=== PATIENT | male | born 1995 | race Caucasian/White ===

== ENCOUNTER 2023-07-02 00:24 | Emergency (ER) | payer OTHER, SELFPAY ==
[2023-07-02 00:31] VITALS: BP 138/90; PULSE 110; O2SAT 100
--- NOTE | 2023-07-02 00:39 | ECG_ITS ---
Test Reason : ANXIETY Blood Pressure : / mmHG Vent. Rate : 089 BPM Atrial Rate : 089 BPM P-R Int : 158 ms QRS Dur : 098 ms QT Int : 394 ms P-R-T Axes : 002 049 051 degrees QTc Int : 479 ms Normal sinus rhythm Normal ECG When compared with ECG of 26-MAR-2015 07:35, No significant change was found Referred By: Generic ED Physician Electronically Signed By:SINA LEW MD
[2023-07-02 00:48] VITALS: BP 125/78; PULSE 119; RESP 20; TEMP 36.8; O2SAT 99; BMI 35.7
--- NOTE | 2023-07-02 00:53 | MHC.EDTECH ---
Patient arrived by ambulance,vitals taken and EKG done per order. Patient ambulated to bathroom with security for supervisor records change to crisis attire.
[2023-07-02 01:02] LABS: Amphetamine Screen Urine Not Detected (Not Detect); Barbiturates, Urine Not Detected (Not Detect); Benzodiazepines Screen Urine Not Detected (Not Detect); Cannabinoid Screen Urine POSITIVE (Not Detect); Cocaine Screen Urine Not Detected (Not Detect); Fentanyl, urine Not Detected (Not Detect); Opiate Screen Urine Not Detected (Not Detect); Phencyclidine Screen Urine Not Detected (Not Detect)
[2023-07-02 01:08] LABS: Alanine Aminotransferase 49 U/L (0-40); Albumin Level 4.5 g/dL (3.5-5.0); Alkaline Phosphatase 76 U/L (39-117); Anion Gap 16 (12-20); Aspartate Amino Transferase 31 U/L (5-37); Blood Urea Nitrogen 12 mg/dL (9-16); Calcium 9.4 mg/dL (8.4-10.2); Carbon Dioxide 22 mmol/L (22-29); Chloride 104 mmol/L (96-108); Creatinine Clr Calc Pharmacy 121.5; Estimated Glomerular Filt Rate > 60; Ethanol < 10 mg/dL; Glucose Random 143 mg/dL (60-115); Potassium 3.4 mmol/L (3.3-5.1); Sodium 139 mmol/L (135-145); Total Protein 7.7 g/dL (6.5-8.0)
[2023-07-02 01:15] LABS: Glucose, Whole Blood 121 mg/dL (60-115)
--- NOTE | 2023-07-02 01:15 | MHC.EDTECH ---
Belonging list completed and locked in locker 5, mom took home cellphone. Labs and urine sample obtained and sent to lab.
--- NOTE | 2023-07-02 01:18 | ED_ITS ---
HPI - Psych General Chief Complaint: Psychiatric Symptoms Stated Complaint: crisis Time Seen by Provider: 07/02/23 00:47 Source: patient Mode of arrival: EMS Limitations: no limitations History of Present Illness HPI Narrative: Patient comes to the emergency room via ambulance. Patient has been feeling delusional and paranoid. Patient states that he has been in the [employer] after serving for years, he has not been acting of feeling like himself. Patient denies SI or HI. Patient states that he feels like he is going crazy. Patient states that he feels like he is going to , keeps telling the sitter to not allow him to . Patient admits to smoking marijuana, denies using drugs or alcohol. Related Data Home Medications Medication Instructions Recorded Confirmed No Known Home Meds 07/02/23 07/02/23 Allergies Allergy/AdvReac Type Severity Reaction Status Date / Time No Known Allergies Allergy Unverified 07/02/23 00:47 [No Known Allergies*] Review of Systems 2 Review of Systems: Constitutional : No Weight loss, No Fever, No Chills, No Night Sweats, No Fatigue, No Malaise ENT/Mouth : No Hearing loss, No Ear Pain, No Nasal Congestion, No Sinus Pain, No Hoarseness, No sore throat, No Rhinorrhea, No Swallowing Difficulty Eyes: No Eye Pain, No Swelling, No Redness, No Foreign Body, No Discharge, No Vision Changes Cardiovascular : No Chest Pain, No SOB, No Dyspnea on Exertion, No Orthopnea, No Edema, No Palpitations Respiratory : No Cough, No Sputum, No Wheezing, No Smoke Exposure, No Dyspnea Gastrointestinal : No Nausea, No Vomiting, No Diarrhea, No Constipation, No abdominal Pain, No Hematochezia, No Melena Genitourinary : no irregular bleeding, No Dysuria, No Urinary Frequency, No Hematuria, No Urinary Incontinence, No Urgency, No Flank Pain, No Urinary Flow Changes, No Hesitancy Musculoskeletal : No joint pain, No Myalgias, No Joint Swelling Skin : No Skin Lesions, No rash Neuro : No Weakness, No Numbness, No Paresthesias, No Loss of Consciousness, No Dizziness, No Headache Psych : Feeling anxious, paranoid, no SI or HI Heme/Lymph: No Bruising, No Bleeding,No Lymphadenopathy Endocrine : No Polyuria, No Polydipsia, No Temperature Intolerance [facility] Social History Social History Advance Directives: No Advance Directives Information Provided: No Physical Exam 2 Vital Signs: Vital Signs: Last Vital Signs Temp 98.2 F 07/02/23 00:48 Pulse 119 H 07/02/23 00:48 Resp 20 07/02/23 00:48 BP 125/78 07/02/23 00:48 Pulse Ox 99 07/02/23 00:48 O2 Del Method Room Air 07/02/23 00:48 BMI result Body Mass Index 35.7 Const: Other: Appearance: Alert. Oriented X3. No acute distress. Eyes: Pupils equal, round and reactive to light. ENT: Pharynx normal. Neck: Normal inspection. Neck supple. No lymph nodes noted. No crepitus CVS: Normal heart rate and rhythm. Pulses normal. Normal S1 and S2 Respiratory: No respiratory distress. Breath sounds normal. No Wheezing. No rales Abdomen: Soft and nontender. No rigidity. No distention. Skin: Skin warm and dry. Normal skin color. Normal skin turgor. Extremities: No lower extremity edema. No Lacerations. No Rash Neuro: Oriented X 3. No motor deficit. No sensory deficit. Moving all extremities. No slurred speech. CN 2 through 12 grossly intact Psych: calm, cooperative, bit anxious Course Course Course Narrative: -care team consult pending -physician observation started at 01:21 Medical Decision Making Differential Diagnosis Differential Diagnoses: The differential diagnosis associated with the presentation includes (Anxiety, depression, PTSD, paranoia) Admission/Observation Consideration of admission/observation: Escalation of care including admission/observation considered (Patient is not on a Section 12 but will remain under observation and to Behavioral Health determines patient's disposition) Lab Data 07/02/23 01:18 EST 07/02/23 01:18 EST Labs: Lab Results 07/02/23 07/02/23 Range/Units 00:50 01:18 EST WBC 11.5 H (4.8-10.8) X10*3/uL RBC 4.99 (4.60-5.80) X10*6/uL Hgb 14.4 (14.0-18.0) g/dl Hct 42.7 (42.0-52.0) % MCV 85.6 (80.0-98.0) fL MCH 28.9 (27.0-33.0) pg MCHC 33.7 (31.0-36.0) g/dl RDW 12.5 (11.0-16.0) % Plt Count 335 (160-400) X10*3/uL MPV 8.9 L (9.4-12.4) fL Immature Gran % (Auto) 0.7 H (0.0-0.4) % Neut % (Auto) 62.8 (45-73) % Lymph % (Auto) 24.8 (20-40) % Mora % (Auto) 10.7 (2-11) % Eos % (Auto) 0.6 (0-4) % Baso % (Auto) 0.4 (0-2) % Lymph # (Auto) 2.8 (1.2-4.9) X10*3/uL Mora # (Auto) 1.2 (0.1-1.2) X10*3/uL Eos # (Auto) 0.1 (0.0-0.4) X10*3/uL Baso # (Auto) 0.1 (0.0-0.2) X10*3/uL Abs Immat Gran (auto) 0.08 H (0.00-0.03) X10*3/uL Absolute Neuts (auto) 7.2 (2.0-8.3) x10*3/uL Absolute Nucleated RBC 0.000 (0.0-0.012) X10*3/uL Nucleated RBC % (auto) 0.0 (0.0-0.2) /100WBC Sodium 139 (135-145) mmol/L Potassium 3.4 (3.3-5.1) mmol/L Chloride 104 (96-108) mmol/L Carbon Dioxide 22 (22-29) mmol/L Anion Gap 16 (12-20) BUN 12 (9-16) mg/dL Creatinine 1.08 (0.5-1.4) mg/dL Estim Creat Clear Calc 121.5 Estimated GFR > 60 POC Glucose 121 H (60-115) mg/dL Random Glucose 143 H (60-115) mg/dL Calcium 9.4 (8.4-10.2) mg/dL Total Bilirubin 1.0 (0.0-1.0) mg/dL AST 31 (5-37) U/L ALT 49 H (0-40) U/L Alkaline Phosphatase 76 (39-117) U/L Total Protein 7.7 (6.5-8.0) g/dL Albumin 4.5 (3.5-5.0) g/dL Urine Opiates Screen Not Detected (Not Detect) Urine Fentanyl Screen Not Detected (Not Detect) Ur Barbiturates Screen Not Detected (Not Detect) Ur Phencyclidine Scrn Not Detected (Not Detect) Ur Amphetamines Screen Not Detected (Not Detect) U Benzodiazepines Scrn Not Detected (Not Detect) Urine Cocaine Screen Not Detected (Not Detect) U Marijuana (THC) Screen POSITIVE H (Not Detect) Ethyl Alcohol < 10 mg/dL Critical Care Time Critical Care Time Critical Care Time: Yes Total Critical Care Time: 45 Attestation: I have personally provided critical care time. Time includes review of lab data, radiology results, discussion with consultants, and monitoring for potential decompensation. Intervention performed as documented. Discharge Plan Discharge Clinical Impression: Paranoid Patient Disposition: Still a Patient Prescriptions: No Action No Known Home Meds
[2023-07-02 01:21] LABS: MANUAL DIFF FLAG NO
[2023-07-02 01:24] LABS: Basophils Absolute Auto 0.1 X10*3/uL (0.0-0.2); Basophils Percent Auto 0.4 % (0-2); Eosinophils Absolute Auto 0.1 X10*3/uL (0.0-0.4); Eosinophils Percent Auto 0.6 % (0-4); Hematocrit 42.7 % (42.0-52.0); Hemoglobin 14.4 g/dl (14.0-18.0); Imm Gran Abs Auto 0.08 X10*3/uL (0.00-0.03); Imm Gran Pct Auto 0.7 % (0.0-0.4); Lymphocytes Absolute Auto 2.8 X10*3/uL (1.2-4.9); Lymphocytes Percent Auto 24.8 % (20-40); Mean Corpuscular HGB Conc 33.7 g/dl (31.0-36.0); Mean Corpuscular Hemoglobin 28.9 pg (27.0-33.0); Mean Corpuscular Volume 85.6 fL (80.0-98.0); Mean Platelet Volume 8.9 fL (9.4-12.4); Monocytes Absolute Auto 1.2 X10*3/uL (0.1-1.2); Monocytes Percent Auto 10.7 % (2-11); Neutrophils Absolute Auto 7.2 x10*3/uL (2.0-8.3); Neutrophils Percent Auto 62.8 % (45-73); Platelet Count 335 X10*3/uL (160-400); Red Blood Count 4.99 X10*6/uL (4.60-5.80); Red Cell Distribution Width 12.5 % (11.0-16.0); White Blood Count 11.5 X10*3/uL (4.8-10.8)
--- NOTE | 2023-07-02 06:29 | PC.NURSE ---
Patient slept in all an hour and half, patient refused medication for sleep, thought content paranoid with racing thought, care consult ordered/pending evaluation, med rec completed/patient is currently not on any medication, VSS, labs completed/resulted, will continue to monitor.
[2023-07-02 06:39] VITALS: PULSE 86
--- NOTE | 2023-07-02 07:09 | PC.NURSE ---
patient appears to remain asleep respirations are even and unlabored patient now seated in a chair directly up against the wall proximal to entrance of room, patient appears in no distress
--- NOTE | 2023-07-02 07:14 | PC.NURSE ---
client comes to rn station approaches staff about process of being seen this morning, breathing deeply, seems tearful and emotionally fragile/vulerable. t/w invited client to sit in eye view of rn station if it would help client.
--- NOTE | 2023-07-02 08:49 | PC.NURSE ---
patient asked t/w to express to clinician for the first time in my life i feel like i have purpose
--- NOTE | 2023-07-02 08:56 | PC.NURSE ---
client pacing, freftul, tangential thought process, seeming almost panicked, declines all offered medications
--- NOTE | 2023-07-02 09:12 | PC.NURSE ---
pursued order for benadryl for sleep patient declined.
[2023-07-02] MEDS: diphenhydrAMINE HCL 25 MG CAPSULE 50 MG PO (09:46)
--- NOTE | 2023-07-02 11:57 | MHC.CARE ---
[facility].
[2023-07-02] MEDS: OLANZapine 5 MG TABLET PO ×2 (12:04→20:50)
--- NOTE | 2023-07-02 14:37 | MHC.CARE ---
[facility], need [facility] for review for potential admission.
[2023-07-02 16:20] LABS: COVID-19 Test Positive (Negative); IDNOW Serial# 6674DD1D
--- NOTE | 2023-07-02 16:42 | PC.NURSE ---
informed mother about covid status, informed provider also.
--- NOTE | 2023-07-02 16:43 | PC.NURSE ---
asked clients mother to inform father and sister of covid positive status
--- NOTE | 2023-07-02 18:27 | PC.NURSE ---
patients father expressed interest [facility], but t/w expressed how it may take time for place,ent there now considering
[2023-07-02 20:08] VITALS: BP 135/98; PULSE 98; RESP 20; TEMP 36.6; O2SAT 98
[2023-07-03 05:55] VITALS: BP 134/90; PULSE 90; RESP 16; TEMP 36.1; O2SAT 97
[2023-07-03] MEDS: OLANZapine 5 MG TABLET PO ×2 (06:39→20:20)
--- NOTE | 2023-07-03 07:16 | PC.NURSE ---
PT medicated as per MAR due to racing thoughts , pacing and paranoia. After being medicated PT appeared to be sleeping for most of the shit. PT woke up at 530am request caffeine and stating that he slept for 15 hours. PT endorsing racing thoughts again, request one time dose of zyprexa from provider. PT noted it appered to help him significantly. PT provided meal. Resting in room quiel Plan of care ongoing.
[2023-07-03] MEDS: LORazepam 1 MG TABLET PO ×2 (07:41→20:20)
--- NOTE | 2023-07-03 07:45 | PC.NURSE ---
Francisco was OOB and verbalized feeling anxious and bored without his cellphone. He was observed pacing and rocking in his room. 1mg Lorazepam PO given pending effect.
--- NOTE | 2023-07-03 09:29 | MHC.CARE ---
RAD Team reached out to [facility] to inquire if they could review someone who is covid+. T/w spoke to Lexii who informed me that they cannot take someone who is covid+ and from their knowledge neither will [facility] or [facility]. She stated that she would give me a call back if that info is incorrect and gave me the number to an emergency line [phone] that we can call to notify of his status in the ED if placement cannot be found. Lexii also informed me that if there are any [facility]id[facility] available [facility] that they would be able to pay for his admission there.
--- NOTE | 2023-07-03 11:44 | MHC.CARE ---
0900 - CARE Team attempts to meet with pt to conduct an MSU. Pt is asleep and would not awaken. 1130 - CARE Team attempts to meet with pt to conduct an MSU. Pt is asleep and would not awaken.
--- NOTE | 2023-07-03 12:17 | MHC.CARE ---
Section 12 placed in pt's chart. Provider and RN made aware.
[2023-07-03 15:24] LABS: COVID-19 Test Negative (Negative); IDNOW Serial# BCCEAD1C
--- NOTE | 2023-07-03 17:12 | MHC.CARE ---
CARE Team international trade analyst called [facility] to confirm receiving of successful fax of patient's updated information and negative COVID status sent at 16:08. loss prevention coordinator Leander reports not having the information.
--- NOTE | 2023-07-03 17:50 | PC.NURSE ---
Covid PCR completed for transfer to [place]. Pending results.
[2023-07-03 18:28] LABS: Influenza A PCR NEGATIVE (Negative); Influenza B PCR NEGATIVE (Negative); Resp Syncy Virus RNA Qual PCR NEGATIVE (Negative); SARS COV2 PCR INHOUSE NEGATIVE (Negative)
--- NOTE | 2023-07-03 20:24 | PC.NURSE ---
I assumed care of the pt at 1900. Pt resting quietly in bed with TV on. Pt is A&Ox4, GCS 15 with warm, dry skin. Calm and cooperative. Pt medicated per OCT. [facility] at [facility] time.
--- NOTE | 2023-07-03 20:32 | PC.NURSE ---
Spoke with Marty from [place] who stated they have received the COVID results and are accepting the pt. Transportation will be here in approx 30 min.
[2023-07-03 20:38] VITALS: BP 128/84; PULSE 101; RESP 17; O2SAT 98
== END 2023-07-03 20:52 ==
PROVIDERS: Emergency Medicine; Student in an Organized Health Care Education/Training Program; Emergency Provider Emergency Medicine
DX: F22 Delusional disorders (principal); F23 Brief psychotic disorder; Z20.822 Contact with and (suspected) exposure to COVID-19; Z20.828 Contact with and (suspected) exposure to other viral communicable diseases; Z11.52 Encounter for screening for COVID-19; F12.90 Cannabis use, unspecified, uncomplicated
CPT/HCPCS: 0241U; 36415; 80053; 80307; 82947; 85025; 87635; 93005; 99284; 99285; S9485

== ENCOUNTER 2024-07-09 12:26 | Emergency (ER) | payer MEDICAID, SELFPAY ==
--- NOTE | ~2024-07-09 | US_ITS ---
EXAMINATION: US SCROTUM CLINICAL INFORMATION: Severe testicular pain. COMPARISON: None available. TECHNIQUE: A sonogram of the scrotum was performed assessing mcgregor-scale appearance and color Doppler flow. Spectral Doppler analysis of the arterial and venous flow were performed in the testes bilaterally. FINDINGS: RIGHT: Right testicle measures 4.7 x 3.2 x 3.3 cm, volume 25.5 mL. No focal testicular parenchymal lesions are visualized. Spectral Doppler analysis of the arterial and venous flow is normal in the right testis. Right epididymal head is normal in size. No right hydrocele or varicocele is seen. Right epididymal Doppler flow is normal. LEFT: Left testicle measures 4.8 x 3 x 3.3 cm, volume 25.4 mL. No focal testicular parenchymal lesions are visualized. Spectral Doppler analysis of the arterial and venous flow is normal in the left testis. Left epididymal head is normal in size. No left hydrocele or varicocele is seen. Left epididymal Doppler flow is normal. US/US scrotum IMPRESSION: No evidence of testicular torsion. Normal-appearing testicles bilaterally. Electronically signed by: Marques Colindres MD 07/09/2024 01:35 PM [facility] [place]
--- NOTE | ~2024-07-09 | US_ITS ---
EXAMINATION: US SCROTUM CLINICAL INFORMATION: Severe testicular pain. COMPARISON: None available. TECHNIQUE: A sonogram of the scrotum was performed assessing mcgregor-scale appearance and color Doppler flow. Spectral Doppler analysis of the arterial and venous flow were performed in the testes bilaterally. FINDINGS: RIGHT: Right testicle measures 4.7 x 3.2 x 3.3 cm, volume 25.5 mL. No focal testicular parenchymal lesions are visualized. Spectral Doppler analysis of the arterial and venous flow is normal in the right testis. Right epididymal head is normal in size. No right hydrocele or varicocele is seen. Right epididymal Doppler flow is normal. LEFT: Left testicle measures 4.8 x 3 x 3.3 cm, volume 25.4 mL. No focal testicular parenchymal lesions are visualized. Spectral Doppler analysis of the arterial and venous flow is normal in the left testis. Left epididymal head is normal in size. No left hydrocele or varicocele is seen. Left epididymal Doppler flow is normal. US/US scrotum doppler IMPRESSION: No evidence of testicular torsion. Normal-appearing testicles bilaterally. Electronically signed by: Marques Colindres MD 07/09/2024 01:35 PM [facility]
[2024-07-09 12:35] VITALS: BP 116/98; PULSE 121; RESP 18; TEMP 36.8; O2SAT 98; BMI 37.2
--- NOTE | 2024-07-09 12:35 | ED_ITS ---
HPI - General Adult General Chief complaint: Urogenital-Male Stated complaint: twisted testicles Time Seen by Provider: 07/09/24 12:58 Source: patient and RN notes reviewed Mode of arrival: ambulatory Limitations: no limitations History of Present Illness ED Provider: Stephy Holt PA-C HPI narrative: This is a 29-year-old male who presents emergency department with complaints of left testicular pain. Patient states that while he was driving he suddenly had an acute onset of left testicular pain that radiated from his left lower quadrant into his left testicle. He denies any testicular swelling. Reporting 10/10 pain in triage. Upon my assessment, patient states that his pain has resolved however he is anxious that this pain will return. He denies any fevers, chills, nausea, vomiting, diarrhea. Denies history similar symptoms in the past. No other complaints or concerns at this time. MD complaint: Left testicular pain Onset (ago): hour(s) Radiation: non-radiation Severity: moderate Quality: aching Pain Consistency: constant Relieving factors: none Exacerbating factors: none Associated symptoms: denies other symptoms Treatments prior to arrival: none Related Data Home Medications ?Medication ?Instructions ?Recorded ?Confirmed No Known Home Meds 07/02/23 07/02/23 Allergies Allergy/AdvReac Type Severity Reaction Status Date / Time No Known Allergies Allergy Verified 07/09/24 12:38 [No Known Allergies*] Review of Systems Review of Systems: Yes all other systems are reviewed and are negative Constitutional: Constitutional: Reports as per [facility] Past Medical History Attestation statement: The following information was validated with the patient. Social History Social History Advance Directives: No Advance Directives Information Provided: No Do you have a plan to hurt others: No Plan Physical Exam ED Vital Signs: Vital Signs - 24 hr 07/09/24 12:35 07/09/24 14:58 07/09/24 16:15 Temperature 98.3 F 98.3 F 98.2 F Pulse Rate 121 H 97 75 Respiratory Rate 18 16 16 Blood Pressure 116/98 H 118/73 134/87 Pulse Oximetry 98 96 97 Oxygen Delivery Method Room Air Room Air Room Air 07/09/24 16:41 Temperature 98.2 F Pulse Rate 75 Respiratory Rate 16 Blood Pressure 134/87 Pulse Oximetry 97 Oxygen Delivery Method Room Air BMI result Body Mass Index 37.2 Const General: cooperative, comfortable and no acute distress Orientation/consciousness: patient oriented x3 Limitations: no limitations HENMT Head: Yes normal to inspection, Yes normocephalic and Yes atraumatic Ears: hearing grossly normal bilaterally General nose exam: Normal external nose present Face and sinus: Yes normal facial exam Mouth: Normal oral and palatal mucosa present, oropharynx normal and moist mucous membranes Throat: Yes posterior oropharynx normal Eyes General: appearance normal, both eyes and all related structures Eyelids: Yes eyelids normal Conjunctivae: conjunctivae normal Sclerae: sclerae normal Pupils: Equal, round and reactive pupils present EOM: EOMs intact bilaterally Neck Neck: Yes normal visual inspection, Yes full ROM and Yes no lymphadenopathy Lymphatic: no lymphadenopathy noted Chest Chest palpation & inspection: normal inspection of the chest Resp Effort & Inspection: normal respiratory effort and able to speak in complete sentences Auscultation: clear to auscultation bilaterally, no crackles, no rales, no rhonchi and no wheezes Cardio Rate: regular rate Rhythm: regular rhythm Heart sounds: S1 normal heart sound present and S2 normal heart sound present GI Inspection: Yes normal to inspection Other: examination was performed with Annie Boateng LPN present at all times. Male General Exam: Yes normal external exam and No ecchymosis Penis: normal penis Meatus: no meatla discharge Scrotum: scrotum normal, no ecchymosis, not edematous, testes descended bilaterally, no hydroceles, no inguinal hernias, no masses, no scrotal swelling and no ulcerations Testes: Testes normal, testicular lie normal and no testicular tenderness Skin General skin exam: no rashes or lesions noted Trauma: no lacerations or abrasions Wounds: no wounds Neuro General: patient oriented x3 and moves all extremities Cranial nerves: Yes Equal, round and reactive pupils present Extrem General: Yes normal to inspection Right upper extremity: normal to inspection Left upper extremity: normal to inspection Right lower extremity: normal to inspection Left lower extremity: normal to inspection Course Course Course Narrative: This is a rapid medical exam performed by Shama Card NP: Additional HPI, ROS, PE not included below will be deferred to primary provider. Patient is a 29-year-old male presenting with severe sudden onset left testicular pain which began 2 hours ago. Feels urge to urinate and have BM, states unable to do either, unable to sit, appears very uncomfortable. Plan: US with doppler, UA, CT NG Reevaluation(s) Reevaluation #1: Urine returns, revealing hematuria. He likely passed a stone which caused him to have the symptoms. I discussed workup with urologist, Dr. Hernández, who states that he will follow-up with patient tomorrow. Torsion is unlikely in his age. More likely a kidney stone. Given he is asymptomatic, urinating freely, no further workup indicated at this time. Patient given strict return precautions. He is comfortable with this plan patient stable for discharge. Medical Decision Making Medical Decision Making [facility] Narrative: This is a 29-year-old male who presents emergency department with complaints of acute onset left testicular pain which started this afternoon. On arrival, patient tachycardic at 121, blood pressure 116/98. Patient was visibly uncomfortable in triage however upon my assessment, patient states that his pain completely resolved. Ultrasound was immediately performed at bedside, revealing no evidence of torsion. Will obtain UA to rule out any infection. He is not sexually active therefore STIs unlikely. Differential Diagnosis Differential Diagnoses: The differential diagnosis associated with the presentation includes Epididymitis, testicular torsion, acute cystitis, STI, pyelonephritis, obstructive uropathy Lab Data [facility] Lab Attestation statement: I reviewed the patient's lab results. Labs: Lab Results 07/09/24 Range/Units 15:40 Urine Color Yellow Urine Appearance Clear Urine pH 8.5 (5.0-9.0) Ur Specific [place] 1.010 (1.005-1.025) Urine Protein Negative (Neg-Trace) mg/dL Urine Glucose (UA) Negative (Negative) mg/dL Urine Ketones Negative (Negative) mg/dL Urine Blood Moderate (2+) H (Negative) Urine Nitrite Negative (Negative) Ur Leukocyte Esterase Negative (Negative) Urine RBC >20 H (0-2) /HPF Urine WBC 0-5 (0-5) /HPF Ur Squamous Epith Cells 0-2 (0-2) /HPF Urine Bacteria None Seen (None Seen) Hyaline Casts 0-2 (0-2) /LPF Chlam trachomat DNA PCR NOT DETECTED (Not Detect.) N.gonorrhoeae DNA (PCR) NOT DETECTED (Not Detect.) Radiology Impression Discussion of test interpretation with radiology: I have reviewed the radiologist's reading. Radiologist Impression: US/US scrotum doppler IMPRESSION: No evidence of testicular torsion. Normal-appearing testicles bilaterally. Electronically signed by: Marques Colindres MD 07/09/2024 01:35 PM [facility] [place] Discharge Plan Discharge Clinical Impression: Pain in left testicle, Hematuria Patient Disposition: Home, Self-Care Instructions: Hematuria (ED), Testicle Pain (ED) Additional Instructions: You were seen in the emergency department due to left testicular pain. Your ultrasound was normal and did not reveal any evidence of testicular torsion. Your urine does show microscopic blood, this may be indicative of a kidney stone that you may have passed. It is unclear if you had testicular torsion that self resolved or if you had a kidney stone that you may have passed. Please stay very well hydrated. If your symptoms return, please immediately seek emergent care. The urology office will call you tomorrow to set up an appointment. If you do not hear from them, their number is below. Prescriptions: No Action No Known Home Meds Referrals: [facility] Services [Provider Group] Stand Alone Forms: Work/School Release Interventions: ED Discharge Assessment Last Done: 07/09/24 16:41 Discharge Date/Time: 07/09/24 16:41 Print Language: Korean
[2024-07-09 14:58] VITALS: BP 118/73; PULSE 97; RESP 16; TEMP 36.8; O2SAT 96
[2024-07-09 15:49] LABS: Appearance Urine Clear; Color Urine Yellow; Glucose Urine UA Negative (Negative); Leukocyte Esterase Urine Negative (Negative); Nitrite Urine Negative (Negative); PH 8.5 (5.0-9.0); UMIC TRIGGER UACC YES; Urine Blood Moderate (2+) (Negative); Urine Ketones Negative (Negative); Urine Protein Negative (Neg-Trace)
[2024-07-09 15:51] LABS: Bacteria Urine None Seen (None Seen); Hyaline Casts Urine 0-2 /LPF (0-2); RBC Urine >20 /HPF (0-2); Squamous Epithelial Cell Urine 0-2 /HPF (0-2); WBC Urine 0-5 /HPF (0-5)
[2024-07-09 16:15] VITALS: BP 134/87; PULSE 75; RESP 16; TEMP 36.8; O2SAT 97
[2024-07-09 16:41] VITALS: BP 134/87; PULSE 75; RESP 16; TEMP 36.8; O2SAT 97
[2024-07-09 17:39] LABS: CT PCR NOT DETECTED (Not Detect.); NG PCR NOT DETECTED (Not Detect.)
== END 2024-07-09 16:41 | disposition home or self-care (01) ==
PROVIDERS: Registered Nurse Emergency; Emergency Provider Emergency Medicine; PCP Internal Medicine
DX: N50.812 Left testicular pain (principal); R31.9 Hematuria, unspecified; R10.30 Lower abdominal pain, unspecified
CPT/HCPCS: 76870; 81001; 87491; 87591; 93975; 99283; 99284

== ENCOUNTER 2024-09-15 16:42 | Emergency (ER) | payer OTHER, SELFPAY ==
[2024-09-15 16:57] VITALS: BP 172/100; PULSE 134; O2SAT 98
[2024-09-15 16:59] VITALS: BP 125/85; PULSE 142; RESP 18; TEMP 37.3; O2SAT 99; BMI 25.8
--- NOTE | 2024-09-15 17:03 | ECG_ITS ---
Test Reason : crisis Blood Pressure : */* mmHG Vent. Rate : 106 BPM Atrial Rate : 106 BPM P-R Int : 152 ms QRS Dur : 96 ms QT Int : 326 ms P-R-T Axes : 60 16 29 degrees QTcB Int : 433 ms Sinus tachycardia Otherwise normal ECG When compared with ECG of 02-Jul-2023 00:43, No significant change was found Referred By: Carmencita Plasencia Electronically Signed By: MANUELA SAMUELS MD
[2024-09-15] MEDS: LORazepam 1 MG TABLET 2 MG PO ×2 (17:13→19:37)
--- NOTE | 2024-09-15 17:26 | ED_ITS ---
HPI - Psych General Chief Complaint: Psychiatric Symptoms Stated Complaint: with ptsd, si Time Seen by Provider: 09/15/24 16:53 Source: patient Mode of arrival: ambulatory Limitations: no limitations History of Present Illness ED Provider: Carmencita Plasencia APRN HPI Narrative: 29 yo male with history of PTSD presents to the ER with reports of patient being combative at home, destroying the house , drank alcohol today, smoked marijuana. EMS reports patient took misc medications. I asked patient and he tells me he took one pill for anxiety but denies any other medications. looks like he hasnt picked up medications since November 2023. He tells me he has been off all medications. [facility] He tells me he has been drinking alcohol and smoking marijuana daily. States I feel manic, I feel euphoric, I think I'm Anton Mendoza or Josh Garner. he denies SI or HI. Denies hallucinations. Denies additional substance use Related Data Home Medications ?Medication ?Instructions ?Recorded ?Confirmed fluoxetine 20 mg capsule 20 mg PO QAM 09/15/24 09/15/24 Allergies Allergy/AdvReac Type Severity Reaction Status Date / Time No Known Allergies Allergy Verified 09/15/24 17:01 [No Known Allergies*] Review of Systems 2 Review of Systems: Yes all other systems are reviewed and are negative Constitutional: Constitutional: Reports no additional constitutional complaints, Denies body ache(s), Denies chills, Denies fever(s), Denies headache(s) and Denies weakness Eyes: Eyes: Reports no additional eye complaints and Denies change in vision ENT: Reports system reviewed and no additional complaints, except as documented, Denies dizziness, Denies headache(s), Denies nasal congestion, Denies nasal discharge and Denies neck pain Cardiovascular: Cardiovascular: Reports no additional cardiovascular complaints, Denies chest pain, Denies leg edema and Denies dyspnea Respiratory: Respiratory: Reports no additional respiratory complaints, Denies cough and Denies dyspnea Gastrointestinal: Gastrointestinal: Reports no additional gastrointestinal complaints, Denies abdominal pain, Denies diarrhea, Denies nausea and Denies vomiting Genitourinary: Genitourinary: Denies urinary incontinence Musculoskeletal: Musculoskeletal: Reports no additional musculoskeletal complaints, Denies back pain, Denies arthralgias, Denies joint swelling, Denies neck pain, Denies numbness and Denies tingling Integumentary/Breasts: Skin/Breast: Reports system reviewed and no additional complaints, except as docu and Denies rash Neurologic: Reports system reviewed and no additional complaints, except as documented, Denies Abnormal speech present, Denies dizziness, Denies headache(s), Denies numbness, Denies tingling and Denies weakness Psychiatric: Psychiatric: Denies homicidal ideation and Denies suicidal ideation [facility] Past Medical History Attestation statement: The following information was validated with the patient. Source: old records reviewed and nursing notes reviewed Social History Social History Advance Directives: No Advance Directives Information Provided: No Physical Exam 2 Vital Signs: Vital Signs: Last Vital Signs Temp 98.1 F 09/15/24 19:18 Pulse 112 H 09/15/24 19:18 Resp 18 09/15/24 19:18 BP 128/94 H 09/15/24 19:18 Pulse Ox 95 09/15/24 19:18 O2 Del Method Room Air 09/15/24 19:18 BMI result Body Mass Index 25.8 Const: General: cooperative, healthy appearing, comfortable and no acute distress Orientation/consciousness: patient oriented x3 Limitations: no limitations HEENT: Head: Yes normal to inspection Ears: hearing grossly normal bilaterally General nose exam: Normal external nose present Face and sinus: Yes normal facial exam Mouth: Normal oral and palatal mucosa present Throat: Yes posterior oropharynx normal Eyes: General: appearance normal, both eyes and all related structures P upils: Equal, round and reactive pupils present Neck: Neck: Yes normal visual inspection Chest: Chest palpation & inspection: normal inspection of the chest Resp: Effort & Inspection: normal respiratory effort Auscultation: clear to auscultation bilaterally Cardio: Rate: regular rate Rhythm: regular rhythm Peripheral pulses: P eripheral pulses 2+ throughout GI: Inspection: Yes normal to inspection Palpation (GI): Soft to palpation and nontender Auscultation: normal bowel sounds Back/Spine/Pelvis: Thoracic/Lumbar Spine: thoracic and lumbar spine normal to inspection Skin: General skin exam: no rashes or lesions noted Neuro: General: patient oriented x3, no focal motor deficits and normal sensation to monofilament Cranial nerves: Yes CN's II-XII intact bilaterally and Yes Equal, round and reactive pupils present Cognition (Neuro): normal cognition Speech: No Abnormal speech present Gait exam (Neuro): Normal gait present Motor exam (neuro): 5/5 motor strength present throughout Extrem: General: Yes normal to inspection Course Course Course Narrative: Nursing spoke to father. Patient took NO prescription medications prior to arrival. Reevaluation(s) Reevaluation #1: Patient placed in physician observation pending care team evaluation. Medications Administered Discontinued Medications Generic Name Dose Route Start Last Admin Trade Name Chelsey PRN Reason Stop Dose Admin Diphenhydramine HCl 50 mg 09/15/24 19:49 09/15/24 20:16 Diphenhydramine Hcl 25 Mg Capsule PO 09/15/24 19:50 50 mg ONCE ONE Administration Lorazepam 2 mg 09/15/24 17:06 09/15/24 17:13 Lorazepam 1 Mg Tablet PO 09/15/24 17:07 2 mg ONCE ONE Administration Lorazepam 2 mg 09/15/24 19:33 09/15/24 19:37 Lorazepam 1 Mg Tablet PO 09/15/24 19:34 2 mg ONCE ONE Administration Olanzapine 10 mg 09/15/24 17:06 09/15/24 17:16 Olanzapine 10 Mg Tablet PO 09/15/24 17:07 Not Given ONCE ONE Medical Decision Making Medical Decision Making [facility] Narrative: 29 yo male with history of PTSD presents to the ER with reports of patient being combative at home, destroying the house , drank alcohol today, smoked marijuana. EMS reports patient took misc medications. I asked patient and he tells me he took one pill for anxiety but denies any other medications. looks like he hasnt picked up medications since November 2023. He tells me he has been off all medications. [facility] He tells me he has been drinking alcohol and smoking marijuana daily. States I feel manic, I feel euphoric, I think I'm Antonliliana Mendoza or Josh Garner. he denies SI or HI. Denies hallucinations. Denies additional substance use No physical complaints No concern for trauma Will obtain collateral information from family Asymptomatic tachycardia-will obtain ekg Will obtain labs, PLATA Differential Diagnosis Differential Diagnoses: The differential diagnosis associated with the presentation includes PTSD, psychosis Admission/Observation Consideration of admission/observation: Escalation of care including admission/observation considered Consult Healthcare Provider Management of the patient was discussed with: Behavioral Health Provider Patient met with care team. Plan for inpatient bed search. Lab Data MDM Lab Attestation statement: I reviewed the patient's lab results. 09/15/24 17:35 09/15/24 17:35 Labs: Lab Results 09/15/24 09/15/24 Range/Units 17:35 18:12 WBC 8.5 (4.8-10.8) X10*3/uL RBC 5.45 (4.60-5.80) X10*6/uL Hgb 15.7 (14.0-18.0) g/dl Hct 45.5 (42.0-52.0) % MCV 83.5 (80.0-98.0) fL MCH 28.8 (27.0-33.0) pg MCHC 34.5 (31.0-36.0) g/dl RDW 12.3 (11.0-16.0) % Plt Count 400 (160-400) X10*3/uL MPV 9.0 L (9.4-12.4) fL Immature Gran % (Auto) 0.6 H (0.0-0.4) % Neut % (Auto) 61.8 (45-73) % Lymph % (Auto) 27.3 (20-40) % [place] % (Auto) 8.2 (2-11) % Eos % (Auto) 1.3 (0-4) % Baso % (Auto) 0.8 (0-2) % Lymph # (Auto) 2.3 (1.2-4.9) X10*3/uL [place] # (Auto) 0.7 (0.1-1.2) X10*3/uL Eos # (Auto) 0.1 (0.0-0.4) X10*3/uL Baso # (Auto) 0.1 (0.0-0.2) X10*3/uL Abs Immat Gran (auto) 0.05 H (0.00-0.03) X10*3/uL Absolute Neuts (auto) 5.3 (2.0-8.3) x10*3/uL Absolute Nucleated RBC 0.000 (0.0-0.012) X10*3/uL Nucleated RBC % (auto) 0.0 (0.0-0.2) /100WBC Sodium 142 (135-145) mmol/L Potassium 3.6 (3.3-5.1) mmol/L Chloride 111 H (96-108) mmol/L Carbon Dioxide 20 L (22-29) mmol/L Anion Gap 15 (12-20) BUN 6 L (9-16) mg/dL Creatinine 1.01 (0.5-1.4) mg/dL Estim Creat Clear Calc 105.3 Estimated GFR > 60 Random Glucose 92 (60-115) mg/dL Calcium 8.5 D (8.4-10.2) mg/dL Total Bilirubin 0.5 (0.0-1.0) mg/dL Direct Bilirubin 0.2 (0.0-0.5) mg/dL AST 38 H (5-37) U/L ALT 49 H (0-40) U/L Alkaline Phosphatase 78 (39-117) U/L Total Protein 8.4 H (6.5-8.0) g/dL Albumin 4.7 (3.5-5.0) g/dL Urine Color Yellow Urine Appearance Clear Urine pH 6.0 (5.0-9.0) Ur Specific Epps <= 1.005 (1.005-1.025) Urine Protein Negative (Neg-Trace) mg/dL Urine Glucose (UA) Negative (Negative) mg/dL Urine Ketones Negative (Negative) mg/dL Urine Blood Negative (Negative) Urine Nitrite Negative (Negative) Ur Leukocyte Esterase Negative (Negative) Urine Opiates Screen Not Detected (Not Detect) Ur Buprenorphine Scrn Not Detected (Not Detect) ng/mL Ur Oxycodone Screen Not Detected (Not Detect) ng/mL Urine Methadone Screen Not Detected (Not Detect) ng/mL Urine Fentanyl Screen Not Detected (Not Detect) Ur Barbiturates Screen Not Detected (Not Detect) Ur Phencyclidine Scrn Not Detected (Not Detect) Ur Amphetamines Screen Not Detected (Not Detect) U Benzodiazepines Scrn Not Detected (Not Detect) Urine Cocaine Screen Not Detected (Not Detect) U Marijuana (THC) Screen POSITIVE H (Not Detect) Ethyl Alcohol 227 mg/dL Independent Interpretation I performed an independent interpretation of an: EKG Interpretation: I independently reviewed the EKG which shows sinus tachycardia with a rate of 106, normal AR, normal QRS, normal QT Independent Historian Clinical information obtained from an independent historian. History obtained from or confirmed by: EMS Discharge Plan Discharge Clinical Impression: Acute psychosis Patient Disposition: Still a Patient Prescriptions: No Action fluoxetine 20 mg capsule 20 mg PO QAM Interventions: [place]-Suicide Risk Severity Scale Last Done: 09/15/24 18:26 Print Language: Kiswahili
[2024-09-15 17:45] LABS: MANUAL DIFF FLAG NO
[2024-09-15 17:48] LABS: Basophils Absolute Auto 0.1 X10*3/uL (0.0-0.2); Basophils Percent Auto 0.8 % (0-2); Eosinophils Absolute Auto 0.1 X10*3/uL (0.0-0.4); Eosinophils Percent Auto 1.3 % (0-4); Hematocrit 45.5 % (42.0-52.0); Hemoglobin 15.7 g/dl (14.0-18.0); Imm Gran Abs Auto 0.05 X10*3/uL (0.00-0.03); Imm Gran Pct Auto 0.6 % (0.0-0.4); Lymphocytes Absolute Auto 2.3 X10*3/uL (1.2-4.9); Lymphocytes Percent Auto 27.3 % (20-40); Mean Corpuscular HGB Conc 34.5 g/dl (31.0-36.0); Mean Corpuscular Hemoglobin 28.8 pg (27.0-33.0); Mean Corpuscular Volume 83.5 fL (80.0-98.0); Monocytes Absolute Auto 0.7 X10*3/uL (0.1-1.2); Monocytes Percent Auto 8.2 % (2-11); Neutrophils Absolute Auto 5.3 x10*3/uL (2.0-8.3); Neutrophils Percent Auto 61.8 % (45-73); Platelet Count 400 X10*3/uL (160-400); Red Blood Count 5.45 X10*6/uL (4.60-5.80); Red Cell Distribution Width 12.3 % (11.0-16.0); White Blood Count 8.5 X10*3/uL (4.8-10.8)
[2024-09-15 18:00] LABS: Alanine Aminotransferase 49 U/L (0-40); Albumin Level 4.7 g/dL (3.5-5.0); Alkaline Phosphatase 78 U/L (39-117); Anion Gap 15 (12-20); Aspartate Amino Transferase 38 U/L (5-37); Bilirubin Direct 0.2 mg/dL (0.0-0.5); Bilirubin Total 0.5 mg/dL (0.0-1.0); Blood Urea Nitrogen 6 mg/dL (9-16); Calcium 8.5 mg/dL (8.4-10.2); Carbon Dioxide 20 mmol/L (22-29); Chloride 111 mmol/L (96-108); Creatinine Clr Calc Pharmacy 105.3; Estimated Glomerular Filt Rate > 60; Ethanol 227 mg/dL; Glucose Random 92 mg/dL (60-115); Potassium 3.6 mmol/L (3.3-5.1); Sodium 142 mmol/L (135-145); Total Protein 8.4 g/dL (6.5-8.0)
[2024-09-15 18:19] LABS: Appearance Urine Clear; Color Urine Yellow; Glucose Urine UA Negative (Negative); Leukocyte Esterase Urine Negative (Negative); Nitrite Urine Negative (Negative); Specific Gravity - Urine <= 1.005 (1.005-1.025); Urine Blood Negative (Negative); Urine Ketones Negative (Negative); Urine Protein Negative (Neg-Trace)
--- NOTE | 2024-09-15 18:30 | PC.NURSE ---
spoke with father (Kevin [phone]) who states that over the past week herve has been acting increasingly altered/and erratic. today states that he destroyed the house, threw his medications - states he did not see him take any medications and that he threw them across the room, has not been med compliant - kicked the cat and made suicidal statements to his father. lives with his father and grandfather who do not feel safe currently with him being home. [facility].
[2024-09-15 18:36] LABS: Amphetamine Screen Urine Not Detected (Not Detect); Barbiturates, Urine Not Detected (Not Detect); Benzodiazepines Screen Urine Not Detected (Not Detect); Buprenorphine Scr Not Detected (Not Detect); Cannabinoid Screen Urine POSITIVE (Not Detect); Cocaine Screen Urine Not Detected (Not Detect); Fentanyl, urine Not Detected (Not Detect); Methadone Screen, Urine Not Detected (Not Detect); Opiate Screen Urine Not Detected (Not Detect); Oxycodone Screen Urine Not Detected (Not Detect); Phencyclidine Screen Urine Not Detected (Not Detect)
--- NOTE | 2024-09-15 19:09 | PC.NURSE ---
patient appears to remain at rest presently respirations are even and unlabored jaylan
--- NOTE | 2024-09-15 19:13 | PC.NURSE ---
appears in no distress
[2024-09-15 19:18] VITALS: BP 128/94; PULSE 112; RESP 18; TEMP 36.7; O2SAT 95
[2024-09-15] MEDS: diphenhydrAMINE HCL 25 MG CAPSULE 50 MG PO (20:16)
--- NOTE | 2024-09-15 20:33 | PC.NURSE ---
patient agitated, pacing, received ativan escalate and made some angry phone calls to father who he has conflict with, speaks about wanting to leave, stated if i take my bipolar meds ill kill myself
--- NOTE | 2024-09-15 21:15 | MHC.EDTECH ---
Patient pacing, agitated, angry at family. Stated to this tech, If I go home, I'll kill my dad. RN aware.
--- NOTE | 2024-09-16 02:15 | MHC.EDTECH ---
Addendum entered by Anam Morrison 09/16/24 02:22: recommends 'Uncharted IV' video game to staff for when they get manic like he is Original Note: patient becomes agitated and begins pacing, saying that he cannot sleep without alcohol or marijuana, making various requests for water, blankets, lab results, etc and considering pressing the security or med-assist button. pt is agitated at the entrance of dr krishna.
[2024-09-16] MEDS: LORazepam 1 MG TABLET 2 MG PO (02:24)
[2024-09-16] MEDS: diphenhydrAMINE HCL 25 MG CAPSULE 50 MG PO (02:25)
--- NOTE | 2024-09-16 02:35 | PC.NURSE ---
patient awoke and is challenging to redirect at times, makes statements to try and antagonize staff. makes disconnected statements god is real, chelsea corcoran gauges repeats this phrase. patient wanted to call father and client was told phone is off at [phone]. patient also observes environment and talks to staff coming in from nearby units edson god loves you self dialogues wandering around unit, from hours ago when patient was going to push emergency buttons
--- NOTE | 2024-09-16 05:32 | PC.NURSE ---
patients mom called to check on status of client. t/w speculated that client very likely would be going inpatient and conveyed this to M who attested my son had called me and i could tell he wasnt right, that he wants help, for a few weeks now...he games a lot (online alice) and feels he misses out on alice time when on medications . t/w conveyed for the longterm there is also the availability of exterminator injectable medications which could help with compliance but that i wasn't sure what the criteria was for being eligible...t/w advised that care team would likely reach out to her today fpr collateral information.
[2024-09-16 06:20] VITALS: BP 152/94; PULSE 112; RESP 16; TEMP 36.4; O2SAT 97
--- NOTE | 2024-09-16 08:22 | MHC.CARE ---
Pt requested to speak with CARE team and [facility] team informed.
[2024-09-16] MEDS: LORazepam 1 MG TABLET PO ×2 (09:56→14:19)
[2024-09-16 10:02] LABS: Prothrombin Time 11.7 SEC (10.9-12.4)
[2024-09-16 10:13] LABS: Alanine Aminotransferase 51 U/L (0-40); Albumin Level 4.8 g/dL (3.5-5.0); Alkaline Phosphatase 79 U/L (39-117); Aspartate Amino Transferase 35 U/L (5-37); Bilirubin Direct 0.3 mg/dL (0.0-0.5); Bilirubin Total 1.2 mg/dL (0.0-1.0); Phosphorus 1.9 mg/dL (2.7-4.5); Total Protein 8.4 g/dL (6.5-8.0)
[2024-09-16 10:38] LABS: Influenza A PCR NEGATIVE (Negative); Influenza B PCR NEGATIVE (Negative); Resp Syncy Virus RNA Qual PCR NEGATIVE (Negative); SARS COV2 PCR INHOUSE NEGATIVE (Negative)
--- NOTE | 2024-09-16 11:18 | MHC.CARE ---
Pt continues to meet the criteria for IPLOC. Will remain in the BH pod on a Section 12a until placement is found.
--- NOTE | 2024-09-16 13:56 | PC.NURSE ---
notified pt wanted something for anxiety. Awaiting reply.
[2024-09-16 14:44] VITALS: BP 120/73; PULSE 87; RESP 14; TEMP 37.1; O2SAT 96
--- NOTE | 2024-09-16 16:15 | PC.NURSE ---
patient sleeping. skin pwd, resp even and non labored.
--- NOTE | 2024-09-16 17:16 | PC.NURSE ---
Patient awake, asking for something for anxiety and to help him sleep, patient states it doesnt need to be a benzo. patient tearful, support provided and patient now resting quietly watching tv, utilizing weighted blanket for comfort. provider aware of patients increased anxiety.
--- NOTE | 2024-09-16 18:24 | MHC.CARE ---
Pt has been accepted to [facility] for 09/16/24. Accepting is Dr. Iyer. Transport will be here within 30 for pickup
[2024-09-16 18:27] VITALS: BP 162/98; PULSE 116; RESP 20; TEMP 36.6; O2SAT 97
--- NOTE | 2024-09-16 18:53 | PC.NURSE ---
attempted to called [facility] to given nurse to nurse, no answer.
[2024-09-16 18:55] VITALS: BP 162/98; PULSE 116; RESP 20; TEMP 36.6; O2SAT 97
== END 2024-09-16 18:56 ==
PROVIDERS: Emergency Medicine; Nurse Practitioner Family; Emergency Provider Emergency Medicine Emergency Medical Services
DX: F23 Brief psychotic disorder (principal); F43.10 Post-traumatic stress disorder, unspecified; R45.851 Suicidal ideations; F12.90 Cannabis use, unspecified, uncomplicated; F41.9 Anxiety disorder, unspecified; Z03.818 Encounter for observation for suspected exposure to other biological agents ruled out; Z79.899 Other long term (current) drug therapy; Z51.81 Encounter for therapeutic drug level monitoring
CPT/HCPCS: 0241U; 36415; 80048; 80076; 80307; 81003; 83735; 84100; 85025; 85610; 93005; 99285; S9485

== ENCOUNTER → 2024-09-15 17:03 | Outpatient (BNV) | payer OTHER, SELFPAY | PROVIDERS: Emergency Provider Emergency Medicine; Visit Provider Internal Medicine Cardiovascular Disease | DX: R00.0 Tachycardia, unspecified (principal) | CPT/HCPCS: 93010 ==